=== PATIENT | male | born 1995 | race Caucasian/White ===

== ENCOUNTER 2016-12-27 07:39 | Emergency (ER) | payer BC, OTHER ==
[2016-12-27 07:47] VITALS: BP 125/79; PULSE 96; TEMP 98; BMI 28.3
--- NOTE | 2016-12-27 09:23 | PDOC ---
History of Present Illness - General Chief Complaint: Abscess Boil Stated Complaint: WOUND ON SCROTOM Time Seen by Provider: 12/27/16 09:07 History Source: Patient Exam Limitations: No Limitations - History of Present Illness Initial Comments: 12/27/16 09:23 This is a 21yo man without significant PMH who presents to the ER with abscess to his scrotum. He states he was vacationing in [place] and nicked his scrotum while shaving. Over the past 3 days, he noticed discomfort where he cut himself and the area had become firmer. He was seen by his PMD on 12/26 who prescribed Keflex. He has taken 3 doses of Keflex and this morning the abscess started to drain spontaneously. He was concerned about the drainage and came to ER for another opinion. Timing/Duration: reports: week Location: reports: genitalia (scrotum) Past History - Past Medical History Allergies/Adverse Reactions: Allergies Allergy/AdvReac Type Severity Reaction Status Date / Time No Known Drug Allergies Allergy Verified 12/27/16 07:42 Home Medications: Ambulatory Orders Cephalexin [Keflex] 500 mg PO BID 12/27/16 Anemia: No Asthma: No Cancer: No Cardiac Disorders: No CVA: No COPD: No CHF: No Dementia: No Diabetes: No GI Disorders: No Disorders: No HTN: No Hypercholesterolemia: No Liver Disease: No Seizures: No Thyroid Disease: No Other medical history: denies - Surgical History Cardiac Surgery: No Lung Surgery: No Neurologic Surgery: No Orthopedic Surgery: Yes (SEPTEMBER 152015 LEFT ARM SX FOR) - Immunization History Immunization Up to Date: No - Psycho/Social/Smoking Cessation Hx Suicidal Ideation: No Smoking History: Current every day smoker Have you smoked in the past 12 months: Yes Number of Cigarettes Smoked Daily: 20 Information on smoking cessation initiated: No 'Breaking Loose' booklet given: 12/14/15 Hx Alcohol Use: No Drug/Substance Use Hx: No Substance Use Type: None Hx Substance Use Treatment: No Review of Systems - Review of Systems Able to Perform ROS?: Yes Is the patient limited Panamanian proficient: No Constitutional: No: Symptoms Reported HEENTM: No: Symptoms Reported Respiratory: No: Symptoms reported Cardiac (ROS): No: Symptoms Reported ABD/GI: No: Symptoms Reported : Yes: See HPI Musculoskeletal: No: Symptoms Reported Integumentary: Yes: See HPI Neurological: No: Symptoms reported *Physical Exam - Vital Signs Last Vital Signs Temp Pulse Resp BP Pulse Ox 98.0 F 96 H 18 125/79 100 12/27/16 07:43 12/27/16 07:43 12/27/16 07:43 12/27/16 07:43 12/27/16 07:43 - Physical Exam General Appearance: Yes: Appropriately Dressed. No: Apparent Distress HEENT: positive: EOMI, HOWIE, Normal ENT Inspection Neck: positive: Trachea midline, Supple Respiratory/Chest: positive: Lungs Clear, Normal Breath Sounds. negative: Chest Tender, Respiratory Distress, Accessory Muscle Use Cardiovascular: positive: Regular Rhythm, Regular Rate, S1, S2. negative: Edema , JVD, Murmur Gastrointestinal/Abdominal: positive: Normal Bowel Sounds, Soft. negative: Tender, Organomegaly Male Genitalia: positive: other (2cm x 6cm ovoid fluctuance located at the distal left scrotum immediately lateral to raphe. No scrotal swelling present.) . negative: testicular tenderness, testicular mass, epididymus tender, inguinal hernia, hernia Musculoskeletal: positive: Normal Inspection. negative: CVA Tenderness Extremity: positive: Normal Capillary Refill, Normal Inspection, Normal Range of Motion Integumentary: positive: Other (2cm x 6cm ovoid fluctuance located at the distal left scrotum immediately lateral to raphe) Neurologic: positive: emergency detail driver II-XII NML intact, Fully Oriented, Alert, Normal Mood/ Affect, Normal Response, Motor Strength 5/5 Medical Decision Making - Medical Decision Making 12/27/16 09:26 This is a 21yo man without significant PMH who presents to the ER with abscess to his scrotum. He states he was vacationing in [place] and nicked his scrotum while shaving. Over the past 3 days, he noticed discomfort where he cut himself and the area had become firmer. He was seen by his PMD on 12/26 who prescribed Keflex. He has taken 3 doses of Keflex and this morning the abscess started to drain spontaneously. He was concerned about the drainage and came to ER for another opinion. Testicular exam normal. No redness present. 2cm x 6cm ovoid fluctuance palpated on the left side of the raphe. Dx: Abscess of scrotum- low concern for Fornier's given lack of scrotal swelling , appearance of scrotum and absence of medical history - bedside U/S - discharge with follow up if u/s negative 12/27/16 12:37 U/s shows no testicular abnormality with scrotal wall abscess. - continue Keflex - F/u with Segundo I discussed the physical exam findings, ancillary test results and final diagnoses with the patient. I answered all of the patient's questions. The patient was satisfied with the care received and felt comfortable with the discharge plan and treatment plan. The patient will call Segundo within 72 hours to arrange follow-up and will return to the Emergency Department with any new, persistent or worsening symptoms. *DC/Admit/Observation/Transfer Diagnosis at time of Disposition: Abscess - Discharge Dispostion Disposition: HOME Condition at time of disposition: Stable Admit: No - Referrals Referrals: Francie Ga MD [Primary Care Provider] - Kole Raymond MD [Staff Physician] - - Patient Instructions Additional Instructions: Drink plenty of fluids. Take Keflex as previously prescribed. Call Dr. Raymond for appointment if not improved within 2 days. Return to ER for worsening pain, swelling, redness, discoloration or any other concerns.
== END 2016-12-27 13:03 | disposition home or self-care (01) ==
LOC: JER 07:39
DX: N49.2 Inflammatory disorders of scrotum (principal); F17.210 Nicotine dependence, cigarettes, uncomplicated
CPT/HCPCS: 76870-TC; 99281-25

== ENCOUNTER 2017-08-29 22:06 | Inpatient (IN) | payer OTHER ==
[~2017-08-29 22:06] MED LIST: MELATONIN 5 MG TABLETS PO PRN
[2017-08-29 22:20] VITALS: BMI 30.5
--- NOTE | 2017-08-29 22:36 | HP ---
COWS - Scale Resting Pulse: 1= [place] 81-100 Sweatin= Chills/Flushing Restless Observation: 1= Difficult to Sit Still Pupil Size: 2= Moderately Dilated Bone or Joint Aches: 1= Mild Discomfort (Chronic joint pain unrelated to withdrawal) Runny Nose/ Eye Tearin= None GI Upset > 30mins: 0= None Tremor Observation: 0= None Yawning Observation: 0= None Anxiety or Irritability: 2=Irritable/Anxious Goose Flesh Skin: 0=Smooth Skin COWS Score: 8 Admission [facility] Chief Complaint: Withdrawal symptoms. Allergies/Adverse Reactions: Allergies Allergy/AdvReac Type Severity Reaction Status Date / Time piperacillin [From Zosyn] AdvReac Mild Itching Verified 08/29/17 06:59 tazobactam [From Zosyn] AdvReac Mild Itching Verified 08/29/17 06:59 History of Present Illness: Having withdrawal symptoms from heroin and cocaine. A transfer from [facility] where was given 8 mg Suboxone today. As pe Dr. Black will receive a methadone detox and then consider rehab. Exam Limitations: No Limitations - Ebola screening Have you traveled outside of the country in the last 21 days: No Have you had contact with anyone from an Ebola affected area: No Have you been sick,other than usual withdrawal symptoms: No Do you have a fever: No - Review of Systems Constitutional: Chills EENT: reports: No Symptoms Reported Respiratory: reports: No Symptoms reported Cardiac: reports: No Symptoms Reported GI: reports: No Symptoms Reported, Diarrhea (Watery, dark brown stools. 3x/day for past 2 days.) : reports: No Symptoms Reported Musculoskeletal: reports: Back Pain (Chronic LBP present all the time. Pain is achy and is about a "5".), Joint Pain (Chronic joint pain mostly wrists, fingers and knees for past two years. Pain is sharp and is a "5". Pain increases with moveing/walking and is relieved w/ pain medication (percocet/ gabapentin) and rest. .) Integumentary: reports: No Symptoms Reported Neuro: reports: No Symptoms reported Endocrine: reports: No Symptoms Reported Hematology: reports: No Symptoms Reported Psychiatric: reports: Orientated x3, Depressed (Hx. depression x 2 months being rx'd w/ Cymbalta. last Cymbalta today. Denies suicide or violent ideation.), other (Hx ADHD. Rx'd in past Strattera. Last took Strattera 2 weeks ago.) Patient History - Patient Medical History Hx Anemia: Yes (Mild anemia per reviewed labs from 08/28 ER visit.) Hx Asthma: No Hx Chronic Obstructive Pulmonary Disease (COPD): No Hx Cancer: No Hx Cardiac Disorders: No Hx Congestive Heart Failure: No Hx Hypertension: No Hx Hypercholesterolemia: No Hx Pacemaker: No HX Cerebrovascular Accident: No Hx Seizures: No Hx Dementia: No Hx Diabetes: No Hx Gastrointestinal Disorders: No Hx Liver Disease: No Hx Genitourinary Disorders: No Hx Sexually Transmitted Disorders: No Hx Renal Disease (ESRD): No Hx Thyroid Disease: No Hx Human Immunodeficiency Virus (HIV): No Hx Hepatitis C: No Hx Depression: Yes (Denies suicide ideation. ) Hx Suicide Attempt: No Hx Bipolar Disorder: No Hx Schizophrenia: No - Patient Surgical History Past Surgical History: Yes Hx Neurologic Surgery: No Hx Cataract Extraction: No Hx Cardiac Surgery: No Hx Lung Surgery: No Hx Breast Surgery: No Hx Orthopedic Surgery: Yes (2016: Torn PCL, LEFT ARM SX FOR fracture Had ORIF) Anesthesia Reaction: No - PPD History Previous Implant?: Yes ([facility] ) Documented Results: Negative w/o proof Implanted On Prior R Admission?: No PPD to be Administered?: Yes - Reproductive History Patient is a Female of Child Bearing Age (11 -55 yrs old): No - Smoking Cessation Smoking history: Current every day smoker Have you smoked in the past 12 months: Yes Aproximately how many cigarettes per day: 20 Hx Chewing Tobacco Use: No Initiated information on smoking cessation: Yes 'Breaking Loose' booklet given: 08/29/17 - Substance & Tx. History Hx Alcohol Use: No Hx Substance Use: Yes (Heroin, Suboxone) Substance Use Type: Cocaine, Heroin Hx Substance Use Treatment: Yes (Hx in-patient rehab 06/2017. Only able to maintain sobriety for 1 week. ) - Substances Abused Cocaine Route: IV Frequency: Daily Amount used: $20 daily Age of first use: 16 Date of Last Use: 08/29/17 ( 6 pm) Heroin Route: IV Frequency: Daily Amount used: 1 bundle Age of first use: 19 Date of Last Use: 08/27/17 Family Disease History - Family Disease History Family Disease History: [place]: Father (Salivary Gland; Hx: heroin and cocaine), Other: Father Admission Physical Exam [facility] - Vital Signs Vital Signs: Vital Signs - 24 hr 08/29/17 22:18 Temperature 99.4 F Pulse Rate 97 H Respiratory 18 Rate Blood Pressure 147/66 - Physical General Appearance: Yes: Appropriately Dressed, Tremorous HEENTM: Yes: Within Normal Limits (Pupils 4 mm) Respiratory: Yes: Within Normal Limits Neck: Yes: Within Normal Limits Breast: Yes: Breast Exam Deferred Cardiology: Yes: Within Normal Limits Abdominal: Yes: Within Normal Limits, Normal Bowel Sounds, Non Tender, Soft Genitourinary: Yes: Within Normal Limits Back: Yes: Within Normal Limits Musculoskeletal: Yes: Within Normal Limits Extremities: Yes: Within Normal Limits Neurological: Yes: Within Normal Limits Integumentary: Yes: Track Jackson (Track jackson (L) neck and both arms.), Other ( Healed scratch scars (L) facial area.) Lymphatic: Yes: Within Normal Limits - Diagnostic (1) Diarrhea Current Visit: Yes Status: Acute (2) Nicotine dependence Current Visit: Yes Status: Chronic (3) Opioid dependence with withdrawal Current Visit: Yes Status: Acute (4) Cocaine dependence Current Visit: Yes Status: Acute (5) Bone pain Current Visit: Yes Status: Chronic Cleared for Admission [facility] - Detox or Rehab [facility] Level of Care: Medically Managed Detox Regimen/Protocol: Methadone [facility] Breath Alcohol Content Breath Alcohol Content: 0 Urine Drug Screen - Results Drug Screen Negative: No Urine Drug Screen Results: MANUEL-Cocaine, TCA-Tricyclic Antidepress
[2017-08-29] MEDS ORDERED: METHADONE HCL 10 MG TABLET (FOR DETOX USE ONLY) PO ONE ×2 (23:00→23:33)
[2017-08-29] MEDS ORDERED: P-EPHED 60MG/TRIPROLIDI 2.5MG TABLET PO PRN (23:33)
[2017-08-29] MEDS ORDERED: MENTHOL/PHENOL 1 EACH UD MM PRN (23:33)
[2017-08-29] MEDS ORDERED: IBUPROFEN 400 MG TABLET (FP) PO PRN (23:33)
[2017-08-29] MEDS ORDERED: MAGNESIUM HYDROX 2400MG/30ML ORAL SUSPENSION 30 ML CUP PO PRN (23:33)
[2017-08-29] MEDS ORDERED: MAGNESIUM CITRATE 300 ML BOTTLE PO PRN (23:33)
[2017-08-29] MEDS ORDERED: guaiFENesin/D-METHORPHAN HB 10 ML UNIT-DOSE CUPS PO PRN (23:33)
[2017-08-29] MEDS ORDERED: LOPERAMIDE HCL 2 MG CAPSULE PO PRN (23:33)
[2017-08-29] MEDS: diazePAM 5 MG TABLET PO PRN (23:53)
[2017-08-30] MEDS: CYCLOBENZAPRINE HCL 10 MG TABLET (FP) PO SCH ×3 (05:18→22:21)
[2017-08-30] MEDS: diazePAM 5 MG TABLET PO PRN ×4 (05:18→17:20)
[2017-08-30] MEDS: NICOTINE POLACRILEX 2 MG GUM BC PRN ×3 (05:19→12:16)
[2017-08-30] MEDS ORDERED: METHADONE HCL 10 MG TABLET (FOR DETOX USE ONLY) PO ONE (10:00)
[2017-08-30] MEDS: PRENATAL VITAMINS W/ FOLIC ACID TABLET (FP) PO SCH (10:13)
[2017-08-30] MEDS: NICOTINE 21 MG/24 HOURS TOPICAL PATCH TD SCH (10:14)
[2017-08-30] MEDS: MAG HYDROX/AL HYDROX/SIMETH 30 ML UNIT-DOSE CUP PO PRN ×2 (12:16→15:22)
--- NOTE | 2017-08-30 12:59 | PN ---
BHS COWS - Scale Resting Pulse: 1= [place] 81-100 Sweatin=Flushed/Facial Moisture Restless Observation: 1= Difficult to Sit Still Pupil Size: 0= Normal to Room Light Bone or Joint Aches: 2= Severe Diffuse Aches Runny Nose/ Eye Tearin= None GI Upset > 30mins: 0= None Tremor Observation of Outstretched Hands: 2= Slight Tremor Visible Yawning Observation: 1= 1-2x During Session Anxiety or Irritability: 2=Irritable/Anxious Goose Flesh Skin: 3=Piloerection COWS Score: 14 BHS Progress Note (SOAP) Subjective: Fatigue, Tremors, Sweating, Interrupted Sleep, H/A, Body Aches. Objective: PATIENT A & O X 3, OBSERVED AMBULATING ON UNIT. NO ACUTE DISTRESS. 08/30/17 12:58 Vital Signs Temperature 98.1 F 08/30/17 09:08 Pulse Rate 83 08/30/17 09:08 Respiratory Rate 16 08/30/17 09:08 Blood Pressure 117/63 08/30/17 09:08 O2 Sat by Pulse Oximetry (%) ADMISSION LABS NOTED (DONE WHILE IN ER YESTERDAY). 08/30/17 13:06 Assessment: 08/30/17 13:07 WITHDRAWAL SYMPTOMS. Plan: CONTINUE DETOX. INCREASE DAILY PO FLUID INTAKE.
[2017-08-30] MEDS: NICOTINE POLACRILEX 4 MG GUM BUC PRN ×4 (14:18→22:24)
--- NOTE | 2017-08-30 15:38 | CONSULT ---
[facility] Psychiatric Consult - Data Date of interview: 08/30/17 Admission source: [facility] Identifying data: First admission to 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 Substance Abuse History: Confirmed by patient in this interview.Details in current [facility] report as follows : Smoking history: Current every day smoker. Have you smoked in the past 12 months: Yes. Aproximately how many cigarettes per day: 20. Hx Chewing Tobacco Use: No. Initiated information on smoking cessation: Yes. 'Breaking Loose' booklet given: 08/29/17. - Substance & Tx. History. Hx Alcohol Use: No. Hx Substance Use: Yes (Heroin, Suboxone). Substance Use Type: Cocaine, Heroin. Hx Substance Use Treatment: Yes (Hx in- patient rehab 06/2017. Only able to maintain sobriety for 1 week. ). - Substances Abused. Cocaine. Route: IV. Frequency: Daily. Amount used: $ 20 daily. Age of first use: 16. Date of Last Use: 08/29/17 ( 6 pm). Heroin. Route: IV. Frequency: Daily. Amount used: 1 bundle. Age of first use : 19. Date of Last Use: 08/27/17 Medical History: History of orthosurgery (right PCL and ORIF for fracture of left arm) in 2016. Psychiatric History: No reported history of psychiatric hospitalizations.Patient endorses the diagnoses of ADD and MDD.Currently managed on a regimen of gabapentin,seroquel,vistaril,duloxetine and zolpidem.Mr oMntoya is known to [facility].Patient is on suboxone maintenance.Denies history of suicide attempts. Physical/Sexual Abuse/Trauma History: Patient denies. Additional Comment: Urine Drug Screen Results: MANUEL-Cocaine, TCA-Tricyclic Antidepressant.Noted. Mental Status Exam - Mental Status Exam Alert and Oriented to: Time, Place, Person Cognitive Function: Good Patient Appearance: Well Groomed Mood: Hopeful, Euthymic Affect: Appropriate, Normal Range Patient Behavior: Fatigued, Appropriate, Cooperative Speech Pattern: Clear, Appropriate Voice Loudness: Normal Thought Process: Intact, Goal Oriented Thought Disorder: Not Present Hallucinations: Denies Suicidal Ideation: Denies Homicidal Ideation: Denies Insight/Judgement: Poor Sleep: Poorly, Difficulty falling asleep Appetite: Good Muscle strength/Tone: Normal Gait/Station: Normal Psychiatric Findings - Problem List (Leslie 1, 2,3) (1) Opioid dependence with withdrawal Current Visit: Yes Status: Acute (2) Cocaine dependence Current Visit: Yes Status: Acute Qualifiers: Substance use status: uncomplicated Qualified Code(s): F14.20 - Cocaine dependence, uncomplicated (3) Nicotine dependence Current Visit: Yes Status: Acute Qualifiers: Nicotine product type: cigarettes Substance use status: uncomplicated Qualified Code(s): F17.210 - Nicotine dependence, cigarettes, uncomplicated (4) ADD (attention deficit disorder) Current Visit: Yes Status: Chronic Comment: As per self-report. (5) Mood disorder Current Visit: No Status: Chronic Comment: According to self-report. (6) Insomnia Current Visit: Yes Status: Acute - Initial Treatment Plan Initial Treatment Plan: Psychoeducation and support.Sleep hygiene.Detoxification in progress.Medications : cymbalta 30 mg po daily + seroquel 100 mg po hs.Side effects/benefits of both drugs are discussed with the patient.Ambien is withdrawn (in view of sedation observed by publicity writer at first attempt to interview this patient in the morning).Mr Montoya agrees with this plan of care.Observation.
[2017-08-30 21:55] LABS: URINE APPEARANCE CLEAR; URINE BILIRUBIN NEGATIVE (<2.0 mg/dL); URINE BLOOD NEGATIVE (NEGATIVE); URINE COLOR LTYELLOW; URINE GLUCOSE (UA) NEGATIVE (NEGATIVE); URINE KETONE NEGATIVE (NEGATIVE); URINE LEUK ESTERASE NEGATIVE (NEGATIVE); URINE NITRITE NEGATIVE (NEGATIVE); URINE PROTEIN NEGATIVE (NEGATIVE); URINE UROBILINOGEN NEGATIVE mg/dL (0.2-1.0)
[2017-08-30] MEDS: THIAMINE HCL 100 MG TABLET (FP) PO SCH (22:21)
[2017-08-30] MEDS: QUEtiapine FUMARATE 100 MG TABLET (FP) PO SCH (22:21)
--- NOTE | 2017-08-30 22:25 | EKG ---
Test Reason : Blood Pressure : / mmHG Vent. Rate : 077 BPM Atrial Rate : 077 BPM P-R Int : 158 ms QRS Dur : 098 ms QT Int : 370 ms P-R-T Axes : 030 040 039 degrees QTc Int : 418 ms NORMAL SINUS RHYTHM NORMAL ECG WHEN COMPARED WITH ECG OF 28-AUG-2017 09:51, NO SIGNIFICANT CHANGE WAS FOUND Confirmed by BEATRICE FRENCH MD ([id number]) on 08/30/2017 10:24:42 PM Referred By: Jaun Black Confirmed By:BEATRICE FRENCH MD
[2017-08-31] MEDS: diazePAM 5 MG TABLET PO PRN ×5 (00:42→22:30)
[2017-08-31] MEDS: CYCLOBENZAPRINE HCL 10 MG TABLET (FP) PO SCH ×3 (05:54→22:29)
[2017-08-31] MEDS: MAG HYDROX/AL HYDROX/SIMETH 30 ML UNIT-DOSE CUP PO PRN ×2 (05:55→17:16)
[2017-08-31] MEDS ORDERED: METHADONE HCL 5 MG TABLET (FOR DETOX USE ONLY) PO ONE (10:00)
[2017-08-31] MEDS: DULoxetine HCL 30 MG CAPSULE.DR (FP) PO SCH (11:35)
[2017-08-31] MEDS: PRENATAL VITAMINS W/ FOLIC ACID TABLET (FP) PO SCH (11:35)
[2017-08-31] MEDS: NICOTINE POLACRILEX 4 MG GUM BUC PRN ×4 (11:35→22:34)
[2017-08-31] MEDS: NICOTINE 21 MG/24 HOURS TOPICAL PATCH TD SCH (11:35)
--- NOTE | 2017-08-31 14:10 | PN ---
BHS COWS - Scale Resting Pulse: 1= [place] 81-100 Sweatin=Flushed/Facial Moisture Restless Observation: 3= Extraneous Movement Pupil Size: 1= Pupils >than Normal Bone or Joint Aches: 2= Severe Diffuse Aches Runny Nose/ Eye Tearin= Runny Nose/Eyes GI Upset > 30mins: 2= Nausea/Diarrhea Tremor Observation of Outstretched Hands: 2= Slight Tremor Visible Yawning Observation: 1= 1-2x During Session Anxiety or Irritability: 2=Irritable/Anxious Goose Flesh Skin: 0=Smooth Skin COWS Score: 18 BHS Progress Note (SOAP) Subjective: Patient refused to speak with check writer salesperson Objective: 08/31/17 14:08 Last Vital Signs Temp Pulse Resp BP Pulse Ox 95.8 F L 98 H 20 105/59 08/31/17 13:37 08/31/17 13:37 08/31/17 13:37 08/31/17 13:37 Laboratory Tests 08/30/17 15:19 Urine Color Ltyellow Urine Appearance Clear Urine pH 5.0 Ur Specific [place] 1.018 Urine Protein Negative Urine Glucose (UA) Negative Urine Ketones Negative Urine Blood Negative Urine Nitrite Negative Urine Bilirubin Negative Urine Urobilinogen Negative Ur Leukocyte Esterase Negative Labs reviewed Assessment: 08/31/17 14:09 Withdrawal symptoms Plan: Continue detox Encouraged to drink lots of water for hydration
[2017-08-31] MEDS: QUEtiapine FUMARATE 100 MG TABLET (FP) PO SCH (22:29)
[2017-08-31] MEDS: THIAMINE HCL 100 MG TABLET (FP) PO SCH (22:29)
[2017-08-31] MEDS ORDERED: RANITIDINE HCL 150 MG TABLET (FP) PO ONE (23:15)
[2017-09-01] MEDS: CYCLOBENZAPRINE HCL 10 MG TABLET (FP) PO SCH ×3 (05:16→22:21)
[2017-09-01] MEDS: diazePAM 5 MG TABLET PO PRN ×3 (05:16→22:21)
[2017-09-01] MEDS: NICOTINE POLACRILEX 4 MG GUM BUC PRN ×4 (05:17→22:24)
[2017-09-01] MEDS ORDERED: METHADONE HCL 5 MG TABLET (FOR DETOX USE ONLY) PO ONE (10:00)
[2017-09-01] MEDS: PRENATAL VITAMINS W/ FOLIC ACID TABLET (FP) PO SCH (10:12)
[2017-09-01] MEDS: NICOTINE 21 MG/24 HOURS TOPICAL PATCH TD SCH (10:13)
[2017-09-01] MEDS: DULoxetine HCL 30 MG CAPSULE.DR (FP) PO SCH (10:15)
--- NOTE | 2017-09-01 10:49 | PN ---
BHS Progress Note (SOAP) Subjective: ANXIETY,SWEATS,FATIGUE. Objective: 09/01/17 10:48 Vital Signs Temperature 97.4 F L 09/01/17 09:11 Pulse Rate 102 H 09/01/17 09:11 Respiratory Rate 18 09/01/17 09:11 Blood Pressure 90/55 09/01/17 09:11 O2 Sat by Pulse Oximetry (%) Laboratory Last Values Urine Color Ltyellow 08/30/17 15:19 Urine Appearance Clear 08/30/17 15:19 Urine pH 5.0 (5.0-8.0) 08/30/17 15:19 Ur Specific [place] 1.018 (1.001-1.035) 08/30/17 15:19 Urine Protein Negative (NEGATIVE) 08/30/17 15:19 Urine Glucose (UA) Negative (NEGATIVE) 08/30/17 15:19 Urine Ketones Negative (NEGATIVE) 08/30/17 15:19 Urine Blood Negative (NEGATIVE) 08/30/17 15:19 Urine Nitrite Negative (NEGATIVE) 08/30/17 15:19 Urine Bilirubin Negative (<2.0 mg/dL) 08/30/17 15:19 Urine Urobilinogen Negative mg/dL (0.2-1.0) 08/30/17 15:19 Ur Leukocyte Esterase Negative (NEGATIVE) 08/30/17 15:19 Assessment: 09/01/17 10:48 WITHDRAWAL SX Plan: CONTINUE DETOX
[2017-09-01] MEDS: hydrOXYzine PAMOATE 50 MG CAPSULE (FP) PO PRN (13:41)
[2017-09-01] MEDS: THIAMINE HCL 100 MG TABLET (FP) PO SCH (22:21)
[2017-09-01] MEDS: QUEtiapine FUMARATE 100 MG TABLET (FP) PO SCH (22:21)
[2017-09-01] MEDS: MAG HYDROX/AL HYDROX/SIMETH 30 ML UNIT-DOSE CUP PO PRN (22:23)
[2017-09-02] MEDS: hydrOXYzine PAMOATE 50 MG CAPSULE (FP) PO PRN ×4 (02:09→22:49)
[2017-09-02] MEDS: CYCLOBENZAPRINE HCL 10 MG TABLET (FP) PO SCH ×4 (05:15→22:46)
[2017-09-02] MEDS: NICOTINE POLACRILEX 4 MG GUM BUC PRN ×3 (05:17→14:43)
[2017-09-02] MEDS ORDERED: METHADONE HCL 10 MG TABLET (FOR DETOX USE ONLY) PO ONE (10:00)
--- NOTE | 2017-09-02 10:15 | PN ---
BHS Progress Note (SOAP) Subjective: PT RESTING IN BED. ALERT O X 3. REPORTS TIREDNESS AND SWEATS. Objective: 09/02/17 10:14 Vital Signs Temperature 98.9 F 09/02/17 09:45 Pulse Rate 97 H 09/02/17 09:45 Respiratory Rate 18 09/02/17 09:45 Blood Pressure 109/60 09/02/17 09:45 O2 Sat by Pulse Oximetry (%) Laboratory Last Values Urine Color Ltyellow 08/30/17 15:19 Urine Appearance Clear 08/30/17 15:19 Urine pH 5.0 (5.0-8.0) 08/30/17 15:19 Ur Specific [place] 1.018 (1.001-1.035) 08/30/17 15:19 Urine Protein Negative (NEGATIVE) 08/30/17 15:19 Urine Glucose (UA) Negative (NEGATIVE) 08/30/17 15:19 Urine Ketones Negative (NEGATIVE) 08/30/17 15:19 Urine Blood Negative (NEGATIVE) 08/30/17 15:19 Urine Nitrite Negative (NEGATIVE) 08/30/17 15:19 Urine Bilirubin Negative (<2.0 mg/dL) 08/30/17 15:19 Urine Urobilinogen Negative mg/dL (0.2-1.0) 08/30/17 15:19 Ur Leukocyte Esterase Negative (NEGATIVE) 08/30/17 15:19 Assessment: 09/02/17 10:14 WITHDRAWAL SX Plan: CONTINUE DETOX OOB ACTIVITIES ENCOURAGED. INCREASE PO FLUIDS.
[2017-09-02] MEDS: PRENATAL VITAMINS W/ FOLIC ACID TABLET (FP) PO SCH (10:25)
[2017-09-02] MEDS: NICOTINE 21 MG/24 HOURS TOPICAL PATCH TD SCH (10:26)
[2017-09-02] MEDS: DULoxetine HCL 30 MG CAPSULE.DR (FP) PO SCH (10:26)
[2017-09-02] MEDS: ACETAMINOPHEN 325 MG TABLET (FP) PO PRN ×2 (10:27→22:48)
[2017-09-02] MEDS: THIAMINE HCL 100 MG TABLET (FP) PO SCH (22:46)
[2017-09-02] MEDS: QUEtiapine FUMARATE 100 MG TABLET (FP) PO SCH (22:46)
[2017-09-03] MEDS: CYCLOBENZAPRINE HCL 10 MG TABLET (FP) PO SCH (05:13)
[2017-09-03] MEDS: ACETAMINOPHEN 325 MG TABLET (FP) PO PRN ×2 (05:14→09:40)
[2017-09-03] MEDS: hydrOXYzine PAMOATE 50 MG CAPSULE (FP) PO PRN (05:14)
[2017-09-03] MEDS ORDERED: METHADONE HCL 5 MG TABLET (FOR DETOX USE ONLY) PO ONE (06:00)
[2017-09-03 06:11] VITALS: BP 96/68; PULSE 83; TEMP 96.3
[2017-09-03] MEDS: NICOTINE POLACRILEX 4 MG GUM BUC PRN ×2 (06:39→10:41)
--- NOTE | 2017-09-03 09:58 | DS ---
[facility] Detox Discharge Summary Admission Date: 08/29/17 Discharge Date: 09/03/17 - History Present History: Cocaine Dependence, Opioid Dependence Additional Comments: DETOX COMPLETED. ALERT O X 3. MEDICALLY STABLE. PT HAS BEEN REMINDED TO FOLLOW UP WITH HIS PRIMARY CARE DOCTOR AT [facility]. Pertinent Past History: PLEASE SEE DX BELOW - Physical Exam Results Vital Signs: Vital Signs Temperature 96.3 F L 09/03/17 06:10 Pulse Rate 83 09/03/17 06:10 Respiratory Rate 18 09/03/17 06:10 Blood Pressure 96/68 09/03/17 06:10 O2 Sat by Pulse Oximetry (%) - Treatment Hospital Course: Detox Protocol Followed, Detoxed Safely, Responded well, Discharged Condition Good - Medication Discharge Medications: Ambulatory Orders Atomoxetine HCl [Strattera] 18 mg PO DAILY 08/27/17 Gabapentin 800 mg PO TID 08/27/17 hydrOXYzine PAMOATE [Vistaril -] 50 mg PO BID 08/27/17 Cyclobenzaprine HCl [Flexeril -] 10 mg PO TID tablet 08/29/17 Vitamins (Sjr) - 1 tab PO DAILY tablet 08/29/17 Thiamine HCl [Vitamin B1 -] 100 mg PO HS tablet 08/29/17 Zolpidem Tartrate [Ambien] 10 mg PO HS PRN tablet MDD 10 08/29/17 Duloxetine HCl [Cymbalta] 30 mg PO DAILY #30 capsule. 09/02/17 Quetiapine Fumarate [Seroquel] 100 tab PO HS 30 Days #30 tablet 09/02/17 Nicotine Patch [Nicoderm Patch -] 14 mg TD DAILY #14 patch 09/03/17 Nicotine Polacrilex [Nicorelief -] 2 mg BUC Q2H PRN #30 gum 09/03/17 - Diagnosis (1) Nicotine dependence Current Visit: Yes Status: Acute Qualifiers: Nicotine product type: cigarettes Substance use status: uncomplicated Qualified Code(s): F17.210 - Nicotine dependence, cigarettes, uncomplicated (2) Opioid dependence with withdrawal Current Visit: Yes Status: Acute (3) Cocaine dependence Current Visit: Yes Status: Acute Qualifiers: Substance use status: uncomplicated Qualified Code(s): F14.20 - Cocaine dependence, uncomplicated (4) Diarrhea Current Visit: Yes Status: Acute Qualifiers: Diarrhea type: unspecified type Qualified Code(s): R19.7 - Diarrhea, unspecified (5) Bone pain Current Visit: Yes Status: Chronic (6) Insomnia Current Visit: Yes Status: Acute Qualifiers: Insomnia type: unspecified Qualified Code(s): G47.00 - Insomnia, unspecified (7) Mood disorder Current Visit: Yes Status: Acute - AMA Did Patient Leave Against Medical Advice: No
--- NOTE | 2017-09-03 09:58 | PN ---
BHS Progress Note (SOAP) Subjective: DETOX COMPLETED. ALERT O X 3. PT REPORTS HIS PRIMARY DOCTOR HAD BEEN DR. ANIBAL DAY AT [facility]. PT WAS INSTRUCTED TO FOLLOW UP WITH PMD FOR PROPER MEDICAL MANAGEMENT AFTER DISCHARGE. PT REPORTS HE WILL BE GOING TO [facility]. Objective: 09/03/17 09:56 Vital Signs Temperature 96.3 F L 09/03/17 06:10 Pulse Rate 83 09/03/17 06:10 Respiratory Rate 18 09/03/17 06:10 Blood Pressure 96/68 09/03/17 06:10 O2 Sat by Pulse Oximetry (%) Laboratory Last Values Urine Color Ltyellow 08/30/17 15:19 Urine Appearance Clear 08/30/17 15:19 Urine pH 5.0 (5.0-8.0) 08/30/17 15:19 Ur Specific [place] 1.018 (1.001-1.035) 08/30/17 15:19 Urine Protein Negative (NEGATIVE) 08/30/17 15:19 Urine Glucose (UA) Negative (NEGATIVE) 08/30/17 15:19 Urine Ketones Negative (NEGATIVE) 08/30/17 15:19 Urine Blood Negative (NEGATIVE) 08/30/17 15:19 Urine Nitrite Negative (NEGATIVE) 08/30/17 15:19 Urine Bilirubin Negative (<2.0 mg/dL) 08/30/17 15:19 Urine Urobilinogen Negative mg/dL (0.2-1.0) 08/30/17 15:19 Ur Leukocyte Esterase Negative (NEGATIVE) 08/30/17 15:19 Assessment: 09/03/17 09:57 MEDICALLY STABLE Plan: D/C PT TODAY.
[2017-09-03] MEDS: PRENATAL VITAMINS W/ FOLIC ACID TABLET (FP) PO SCH (10:38)
[2017-09-03] MEDS: NICOTINE 21 MG/24 HOURS TOPICAL PATCH TD SCH (10:38)
[2017-09-03] MEDS: DULoxetine HCL 30 MG CAPSULE.DR (FP) PO SCH (10:38)
== END 2017-09-03 11:22 | disposition home or self-care (01) | DRG 773 ==
LOC: YASAS 22:06 → Y3N 22:51
PROVIDERS: ADMIT Internal Medicine; ATTEND Internal Medicine
PROC: HZ2ZZZZ Detoxification Services for Substance Abuse Treatment (ICD-10-PCS; principal; 2017-08-29)
DX: F11.23 Opioid dependence with withdrawal (principal); F14.20 Cocaine dependence, uncomplicated; F17.210 Nicotine dependence, cigarettes, uncomplicated; F98.8 Other specified behavioral and emotional disorders with onset usually occurring in childhood and adolescence; G47.00 Insomnia, unspecified; D64.9 Anemia, unspecified; R19.7 Diarrhea, unspecified; M89.8X9 Other specified disorders of bone, unspecified site
CPT/HCPCS: 81003; 93005; 93010

== ENCOUNTER 2018-08-10 18:06 | Inpatient (IN) | payer OTHER ==
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
[2018-08-10] MEDS ORDERED: cloNIDine HCL 0.1 MG TABLET PO PRN (21:18)
[2018-08-10] MEDS ORDERED: P-EPHED 60MG/TRIPROLIDI 2.5MG TABLET PO PRN (21:18)
[2018-08-10] MEDS ORDERED: MAGNESIUM HYDROX 2400MG/30ML ORAL SUSPENSION 30 ML CUP PO PRN (21:18)
[2018-08-10] MEDS ORDERED: ONDANSETRON *ODT* 4 MG TABLET SL PRN (21:18)
[2018-08-10] MEDS ORDERED: guaiFENesin 200 MG/10 ML 10 ML UNIT-DOSE CUPS PO PRN (21:18)
[2018-08-10] MEDS ORDERED: MAG HYDROX/AL HYDROX/SIMETH 30 ML UNIT-DOSE CUP PO PRN (21:18)
[2018-08-10] MEDS ORDERED: DICYCLOMINE HCL 10 MG CAPSULE PO PRN (21:18)
[2018-08-10] MEDS ORDERED: NICOTINE POLACRILEX 2 MG GUM BUC PRN (21:18)
[2018-08-10] MEDS ORDERED: hydrOXYzine PAMOATE 25 MG CAPSULE (FP) PO PRN (21:18)
[2018-08-10] MEDS ORDERED: MENTHOL/PHENOL 1 EACH UD MM PRN (21:18)
[2018-08-10] MEDS ORDERED: ACETAMINOPHEN 325 MG TABLET (FP) PO PRN (21:18)
[2018-08-10] MEDS ORDERED: IBUPROFEN 400 MG TABLET (FP) PO PRN (21:18)
[2018-08-10] MEDS ORDERED: MAGNESIUM CITRATE 300 ML BOTTLE PO PRN (21:18)
[2018-08-10] MEDS ORDERED: BISMUTH SUBSALICYLATE 524 MG/30 ML UD PO PRN (21:18)
[2018-08-10] MEDS ORDERED: METHOCARBAMOL 500 MG TABLET PO PRN (21:18)
[2018-08-10] MEDS ORDERED: METHADONE HCL 10 MG TABLET (FOR DETOX USE ONLY) PO ONE (23:00)
[2018-08-11] MEDS: MELATONIN 5 MG TABLETS PO PRN ×2 (00:43→21:46)
[2018-08-11] MEDS: THIAMINE HCL 100 MG TABLET (FP) PO SCH ×2 (00:43→21:45)
[2018-08-11] MEDS: ACETAMINOPHEN 325 MG TABLET (FP) PO PRN ×2 (06:08→17:54)
--- NOTE | 2018-08-11 09:25 | PN ---
BHS COWS - Scale Resting Pulse: 0= IN 80 or Below Sweatin= Chills/Flushing Restless Observation: 1= Difficult to Sit Still Pupil Size: 1= Pupils >than Normal Bone or Joint Aches: 2= Severe Diffuse Aches Runny Nose/ Eye Tearin= Runny Nose/Eyes GI Upset > 30mins: 2= Nausea/Diarrhea Tremor Observation of Outstretched Hands: 2= Slight Tremor Visible Yawning Observation: 1= 1-2x During Session Anxiety or Irritability: 2=Irritable/Anxious Goose Flesh Skin: 0=Smooth Skin COWS Score: 14 BHS Progress Note (SOAP) Subjective: alert,irritable,anxious,interrupted sleep,pain in the body and back Objective: 08/11/18 09:23 Vital Signs Temperature 98.2 F 08/11/18 06:00 Pulse Rate 66 08/11/18 06:00 Respiratory Rate 18 08/11/18 06:00 Blood Pressure 116/60 08/11/18 06:00 O2 Sat by Pulse Oximetry (%) 08/11/18 09:23 labs pending Assessment: 08/11/18 09:24 withdrawal symptom Plan: continue detox
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
[2018-08-11] MEDS ORDERED: METHADONE HCL 10 MG TABLET (FOR DETOX USE ONLY) PO ONE ×2 (10:00)
[2018-08-11 10:06] LABS: HEMATOCRIT 38.9 % (35.4-49); HEMOGLOBIN 13.2 GM/dL (11.7-16.9); MCH 28.9 pg (25.7-33.7); MEAN CELL VOLUME 84.9 fl (80-96); MEAN PLT VOLUME 8.5 fl (7.5-11.1); PLATELET COUNT 232 K/MM3 (134-434); RBC 4.58 M/mm3 (4.00-5.60); WHITE BLOOD COUNT 7.3 K/mm3 (4.0-10.0)
[2018-08-11] MEDS: NICOTINE 21 MG/24 HOURS TOPICAL PATCH TD SCH (10:08)
[2018-08-11] MEDS: PRENATAL VITAMINS W/ FOLIC ACID TABLET (FP) PO SCH (10:08)
[2018-08-11 10:16] LABS: ALBUMIN 3.9 g/dl (3.4-5.0); ALK PHOS 60 U/L (45-117); ANION GAP 5 MMOL/L (8-16); BILIRUBIN,TOTAL 0.9 mg/dL (0.2-1); BLOOD UREA NITROGEN 13 mg/dL (7-18); CALCIUM 9.2 mg/dL (8.5-10.1); CHLORIDE 106 mmol/L (98-107); CO2 26 mmol/L (21-32); CREATININE 0.8 mg/dL (0.55-1.3); GLUCOSE,RANDOM 97 mg/dL (74-106); POTASSIUM 3.9 mmol/L (3.5-5.1); SGOT/AST 16 U/L (15-37); SGPT/ALT 24 U/L (13-61); SODIUM 137 mmol/L (136-145); TOT PROT 7.3 g/dl (6.4-8.2)
[2018-08-11 12:00] LABS: URINE APPEARANCE Turbid; URINE BILIRUBIN Negative (NEGATIVE); URINE COLOR Yellow; URINE GLUCOSE (UA) Negative (NEGATIVE); URINE KETONE Trace (NEGATIVE); URINE LEUK ESTERASE Negative (NEGATIVE); URINE NITRITE Negative (NEGATIVE); URINE PROTEIN Negative (NEGATIVE); URINE UROBILINOGEN 0.2 mg/dL (0.2-1.0)
--- NOTE | 2018-08-11 14:46 | EKG ---
Test Reason : Blood Pressure : / mmHG Vent. Rate : 058 BPM Atrial Rate : 058 BPM P-R Int : 190 ms QRS Dur : 100 ms QT Int : 414 ms P-R-T Axes : 031 010 023 degrees QTc Int : 406 ms SINUS BRADYCARDIA OTHERWISE NORMAL ECG WHEN COMPARED WITH ECG OF 29-AUG-2017 23:45, NO SIGNIFICANT CHANGE WAS FOUND Confirmed by Tato Galvan ([id number]) on 08/11/2018 2:45:40 PM Referred By: Confirmed By:Tato Galvan
[2018-08-11] MEDS: hydrOXYzine PAMOATE 25 MG CAPSULE (FP) PO PRN ×2 (17:38→21:46)
[2018-08-12] MEDS: hydrOXYzine PAMOATE 25 MG CAPSULE (FP) PO PRN (06:47)
[2018-08-12] MEDS: ACETAMINOPHEN 325 MG TABLET (FP) PO PRN (06:47)
[2018-08-12] MEDS ORDERED: cloNIDine HCL 0.1 MG TABLET PO PRN (09:31)
[2018-08-12] MEDS ORDERED: METHADONE HCL 10 MG TABLET (FOR DETOX USE ONLY) PO ONE ×2 (10:00)
[2018-08-12] MEDS ORDERED: METHADONE HCL 5 MG TABLET (FOR DETOX USE ONLY) PO ONE (10:30)
--- NOTE | 2018-08-12 10:39 | PN ---
BHS COWS - Scale Resting Pulse: 1= MD 81-100 Sweatin= Chills/Flushing Restless Observation: 1= Difficult to Sit Still Pupil Size: 1= Pupils >than Normal Bone or Joint Aches: 1= Mild Discomfort Runny Nose/ Eye Tearin= Nasal Congestion GI Upset > 30mins: 2= Nausea/Diarrhea Tremor Observation of Outstretched Hands: 1= Tremor [place], Not Seen Yawning Observation: 1= 1-2x During Session Anxiety or Irritability: 2=Irritable/Anxious Goose Flesh Skin: 3=Piloerection COWS Score: 15 BHS Progress Note (SOAP) Subjective: pt states he is having withdrawal Sx- meds are not helping him, says thinking of signing out AMA later today O: Vital Signs - 24 hr 08/11/18 08/11/18 08/11/18 13:58 16:49 17:17 Temperature 98.2 F 98.4 F 98.1 F Pulse Rate 90 92 H 88 Respiratory 18 20 18 Rate Blood Pressure 113/60 123/58 L 120/83 08/11/18 08/12/18 08/12/18 21:11 03:30 07:47 Temperature 99.3 F 98.8 F Pulse Rate 107 H 82 Respiratory 18 18 16 Rate Blood Pressure 140/97 138/71 08/12/18 09:06 Temperature 99.0 F Pulse Rate 88 Respiratory 16 Rate Blood Pressure 107/61 Laboratory Tests 08/11/18 08/11/18 08/11/18 00:05 07:00 07:00 WBC 7.3 RBC 4.58 Hgb 13.2 Hct 38.9 D MCV 84.9 MCH 28.9 MCHC 34.0 RDW 14.0 Plt Count 232 MPV 8.5 D Sodium 137 Potassium 3.9 Chloride 106 Carbon Dioxide 26 Anion Gap 5 L BUN 13 Creatinine 0.8 Creat Clearance w eGFR 120.88 Random Glucose 97 Calcium 9.2 Total Bilirubin 0.9 AST 16 ALT 24 Alkaline Phosphatase 60 Total Protein 7.3 Albumin 3.9 Urine Color Yellow Urine Appearance Turbid Urine pH 5.0 Ur Specific [place] 1.025 Urine Protein Negative Urine Glucose (UA) Negative Urine Ketones Trace Urine Blood Negative Urine Nitrite Negative Urine Bilirubin Negative Urine Urobilinogen 0.2 Ur Leukocyte Esterase Negative RPR Titer 04/02/19 07:00 WBC RBC Hgb Hct MCV MCH MCHC RDW Plt Count MPV Sodium Potassium Chloride Carbon Dioxide Anion Gap BUN Creatinine Creat Clearance w eGFR Random Glucose Calcium Total Bilirubin AST ALT Alkaline Phosphatase Total Protein Albumin Urine Color Urine Appearance Urine pH Ur Specific [place] Urine Protein Urine Glucose (UA) Urine Ketones Urine Blood Urine Nitrite Urine Bilirubin Urine Urobilinogen Ur Leukocyte Esterase RPR Titer Nonreactive mildly increased MD Labs WNL a/p: continue heroin detox protocol- d/w nursing staff to administer prn meds as needed to control withdrawal Sx- d/w pt the same.
[2018-08-12] MEDS: PRENATAL VITAMINS W/ FOLIC ACID TABLET (FP) PO SCH (10:46)
[2018-08-12] MEDS: diazePAM 5 MG TABLET PO PRN ×2 (10:47→15:00)
[2018-08-12] MEDS: NICOTINE 21 MG/24 HOURS TOPICAL PATCH TD SCH (10:47)
[2018-08-12 13:29] VITALS: BP 103/54; PULSE 91; TEMP 97.2
--- NOTE | 2018-08-12 18:05 | DS ---
[facility] Detox Discharge Summary Admission Date: 08/10/18 Discharge Date: 08/12/18 - History Present History: Alcohol Dependence, Opioid Dependence Pertinent Past History: pt leaving AMA. Pt admitted 2 days ago for detox. Pt left today- stating he had things to do. d/w pt options for MAT treatment as an outpt - Physical Exam Results Vital Signs: Vital Signs Temperature 97.2 F L 08/12/18 13:28 Pulse Rate 91 H 08/12/18 13:28 Respiratory Rate 18 08/12/18 13:28 Blood Pressure 103/54 L 08/12/18 13:28 O2 Sat by Pulse Oximetry (%) - Medication Discharge Medications: Ambulatory Orders Atomoxetine HCl [Strattera] 18 mg PO DAILY 08/27/17 Gabapentin 800 mg PO TID 08/27/17 Cyclobenzaprine HCl [Flexeril -] 10 mg PO TID tablet 08/29/17 Vitamins (Sjr) - 1 tab PO DAILY tablet 08/29/17 Thiamine HCl [Vitamin B1 -] 100 mg PO HS tablet 08/29/17 Duloxetine HCl [Cymbalta] 30 mg PO DAILY #30 capsule. 09/02/17 Quetiapine Fumarate [Seroquel] 100 tab PO HS 30 Days #30 tablet 09/02/17 Nicotine Patch [Nicoderm Patch -] 14 mg TD DAILY #14 patch 09/03/17 Nicotine Polacrilex [Nicorelief -] 2 mg BUC Q2H PRN #30 gum 09/03/17 - AMA Did Patient Leave Against Medical Advice: Yes
[2018-08-12] MEDS ORDERED: QUEtiapine FUMARATE 100 MG TABLET (FP) PO SCH (22:00)
[2018-08-13] MEDS ORDERED: METHADONE HCL 10 MG TABLET (FOR DETOX USE ONLY) PO ONE (10:00)
[2018-08-14] MEDS ORDERED: METHADONE HCL 5 MG TABLET (FOR DETOX USE ONLY) PO ONE (06:00)
== END 2018-08-12 15:50 | disposition left against medical advice (07) | DRG 770 ==
LOC: YASAS 18:06 → Y6N 23:11
PROVIDERS: ADMIT Surgery; ATTEND Surgery
PROC: HZ2ZZZZ Detoxification Services for Substance Abuse Treatment (ICD-10-PCS; principal; 2018-08-10)
DX: F11.23 Opioid dependence with withdrawal (principal); F17.210 Nicotine dependence, cigarettes, uncomplicated; F90.9 Attention-deficit hyperactivity disorder, unspecified type; F32.9 Major depressive disorder, single episode, unspecified; F19.280 Other psychoactive substance dependence with psychoactive substance-induced anxiety disorder; F19.282 Other psychoactive substance dependence with psychoactive substance-induced sleep disorder; F39 Unspecified mood [affective] disorder; F41.9 Anxiety disorder, unspecified; R00.0 Tachycardia, unspecified; Z88.8 Allergy status to other drugs, medicaments and biological substances
CPT/HCPCS: 36415; 80053; 81003; 85027; 86593; 93005; 93010; J0735